=== PATIENT | female | born 1970 | race Caucasian/White ===

== ENCOUNTER → 2018-06-30 | Outpatient (CLI) | payer OTHER ==
[~2018-06-30] MED LIST: CALC-845 PO; CYCL-332 PO; HIGH CHOLESTEROL MED; IBU800 PO; LEVO150T7 PO; LEVO150T72 PO; ONDA4TAB PO; PER PO
== END ==
LOC: RESP 13:01
PROVIDERS: ATTEND Nurse Practitioner Family
DX: R06.02 Shortness of breath (principal)
CPT/HCPCS: 94060